=== PATIENT | female | born 1990 | race Caucasian/White ===

== ENCOUNTER → 2025-01-16 07:52 | Outpatient (REF) | payer OTHER, SELFPAY | LOC: PNTC 07:52 | PROVIDERS: ATTENDING PHYSICIAN Student in an Organized Health Care Education/Training Program | DX: Z36.0 Encounter for antenatal screening for chromosomal anomalies (principal); Z36.82 Encounter for antenatal screening for nuchal translucency | CPT/HCPCS: 76801; 76813 ==

== ENCOUNTER 2025-02-05 08:50 | Emergency (ER) | payer OTHER, SELFPAY ==
[2025-02-05 08:56] VITALS: BP 140/98
[2025-02-05 10:08] LABS: % Immature Granulocytes 0.3 % (0-0.5); % Lymphocytes 21.9 % (20.5-51.1); % Monocytes 4.9 % (1.7-9.3); % Neutrophils 72.9 % (42.2-75.2); Absolute Lymphocytes 1.7 10^3/uL (1.2-3.4); Absolute Monocytes 0.4 10^3/uL (0.1-0.6); Absolute Neutrophils 5.8 10^3/uL (1.4-6.5); Hematocrit 42.7 % (37.0-47.0); Hemoglobin 14.8 g/dL (12.0-16.0); Mean Corp Hgb Conc. 34.7 g/dL (33.0-37.0); Mean Corpuscular Hgb 28.5 pg (27.0-31.0); Mean Corpuscular Volume 82.1 fL (81.0-99.0); Nucleated Red Blood Cells % 0 %; Platelet Count 168 10^3/uL (130-400); Red Cell Dist. Width 12.2 % (11.5-14.5)
[2025-02-05 10:19] LABS: ALT (SGPT) 24 U/L (0-35); AST (SGOT) 20 U/L (14-36); Albumin 4.2 g/dl (3.5-5.0); Alkaline Phosphatase 104 U/L (38-126); Blood Urea Nitrogen 6 mg/dl (7-17); Calcium 9.4 mg/dl (8.4-10.2); Carbon Dioxide 22 mmol/L (22-30); Chloride 106 mmol/L (98-107); Glucose 146 mg/dl (70-99); Potassium 4.1 mmol/L (3.5-5.1); Sodium 138 mmol/L (135-145); Total Bilirubin 0.6 mg/dl (0.2-1.3); Total Protein 6.7 g/dl (6.3-8.2); eGFR > 60.00
[2025-02-05 10:35] VITALS: BP 128/86; BMI 27.5
--- NOTE | 2025-02-05 10:35 | ED.GENMED ---
History of Present Illness
General
Chief Complaint: Problems
Time Seen by Provider: 02/05/25 10:05
History of Present Illness
History of Present Illness:
34-year-old female at 15 weeks gestation presenting for vaginal bleeding. Patient reports she woke up with lower abdominal cramping and then had very heavy vaginal bleeding. Does note that she has been passing some clots. Reports that she
has been following with [facility] at [place], had normal ultrasounds previously. Patient sent in by [facility] for concern of miscarriage. Denies additional acute medical complaints
Past History
Past History
ED Past Medical History: None
ED Past Surgical History: None
Phy Exam
Physical Exam
Physical Exam:
General: Well-appearing, no clinical signs of dehydration, nontoxic and in no acute distress
HEENT: protecting airway
Neck: appears supple
CV: Normal heart rate
Resp: No accessory muscle use, no increased work of breathing
Abd: Soft and non-distended, no tenderness to palpation
Extremities: No deformities, no swelling
Neuro: alert, no focal neurologic deficit
: deferred
Rectal: deferred
Psych: Normal affect
Skin: Intact
Course
Orders/Labs/Results
Orders:
Orders
02/05/25 09:49
US 2nd/3rd Trimester Urgent
Comment:
Reason For Exam: 15 wks preg started vag blding
Date of Last Menstrual Period: 10/20/24
EDC?: 08/27/25
02/05/25 09:50
Type+Screen Urgent
Beta HCG Quantitative Urgent
Comment: ADD ON
Complete Blood Count/With Diff Urgent
Comprehensive Metabolic Panel Urgent
02/05/25 10:24
Add On- LAB Urgent
Tests Added?: serum
02/05/25 10:33
ABO2 Urgent
BBK Wristband Number:
Associate notified that ABO2 has been ordered: [id number]
Date: 02/05/25
Time: 10:06
[place] Operator ID: [id number]
Abnormal Lab Results
02/05/25
09:50
BUN 6 L mg/dl
(7-17)
Creatinine 0.5 L mg/dL
(0.6-1.0)
Glucose 146 H mg/dl
(70-99)
02/05/25 09:50
02/05/25 09:50
Vital Signs
Initial and Last Documented VS:
Initial Vital Signs
Temp Pulse Resp BP Pulse Ox
98.3 F 108 16 140/98 97
02/05/25 08:56 02/05/25 08:56 02/05/25 08:56 02/05/25 08:56 02/05/25 08:56
Last Documented Vital Signs
Temp Pulse Resp BP Pulse Ox
98.3 F 106 16 128/68 100
02/05/25 08:56 02/05/25 12:50 02/05/25 12:50 02/05/25 12:50 02/05/25 12:50
Information
Weeks gestation: Weeks: (15)
Location: N/A
MDM/Problems Addressed
MDM/Problems Addressed:
34-year-old female, , at 15 weeks gestation presenting for abdominal cramping and vaginal bleeding. Vital signs on arrival are normal.
On exam patient is resting comfortably, no acute distress. Abdominal exam is benign without any focal reproducible tenderness. Concern for miscarriage given reported level of bleeding. Plan for laboratory analysis and ultrasound imaging.
11:30 -ultrasound without any evidence of intrauterine , with concern for spontaneous miscarriage. OB updated, will come down to evaluate. Patient updated on her results as well
12:30 -OB attending to bedside. Did extract a small clot. Otherwise feel stable for discharge. She will call her for follow-up appointment and repeat beta testing. Patient hemodynamically stable. Return precautions discussed and patient
verbalized understanding.
*Critical Care Note
Total Time (30-74mins, 75-104mins- exclusive of procedures): Not Applicable
ED Attending Note
-
Portions of this chart may have been created with voice recognition software.� Occasional wrong word or��sound alike� substitutions may have occurred due to the inherent limitations of voice recognition software.
Discharge Plan
Departure
Patient Disposition: Home (Routine Discharge)
Date of Disposition: 02/05/25
Time of Disposition: 12:38
Patient with high blood pressure during this ER visit?: No
Condition: Good
Discharge Problem:
Spontaneous miscarriage
Instructions: Miscarriage (DC)
Prescriptions:
No Action
prednisone 20 MG tablet
40 mg PO DAILY Qty: 8 0RF
Referrals:
Evgeny Giles CRNP [Family Provider] -
Activity Restrictions/Additional Instructions:
You were seen in the emergency department for abdominal pain and bleeding in
You were found to unfortunately have a spontaneous miscarriage. Your OB doctor will call you for a follow-up appointment and to schedule repeat beta quantitative testing.
Return to the emergency department for any worsening of your symptoms including increased bleeding or pain, or any development of chest pain, difficulty breathing, abdominal pain with persistent vomiting and inability to tolerate food or liquid by
mouth (concern for dehydration), weakness, headache or confusion, fever greater than 100.4, or any additional symptoms that are concerning to you.
Thank you for choosing [facility].
Interventions
Interventions:
*Risk Screen - Suicide Last Done: 02/05/25 12:50
*General Assessment Last Done: 02/05/25 12:50
*Neglect/Abuse Screening Last Done: 02/05/25 12:50
*ED- Fall Risk Assessment Last Done: 02/05/25 12:50
*ED COVID-19 Vaccine History Last Done: 02/05/25 12:50
*Nursing Disposition Last Done: 02/05/25 12:50
ED-Female Genitourinary Assessment Last Done: 02/05/25 10:35
Discharge Date and Time
Discharge Date/Time: 02/05/25 12:50
Print Language: BENINESE
--- NOTE | 2025-02-05 12:10 | EDRN ---
Dr. Joyce in room w/pt
[2025-02-05 12:50] VITALS: BP 128/68
== END 2025-02-05 12:50 | disposition home or self-care (01) ==
LOC: EMR 08:50
PROVIDERS: EMERGENCY PHYSICIAN Student in an Organized Health Care Education/Training Program; FAMILY PHYSICIAN Nurse Practitioner Adult Health
DX: O03.9 Complete or unspecified spontaneous abortion without complication (principal)
CPT/HCPCS: 99284; 76805; 80053; 84702; 85025; 86850; 86900; 86901

== ENCOUNTER → 2025-05-09 15:13 | Outpatient (REF) | payer OTHER, SELFPAY | LOC: HWRAD 15:13 | PROVIDERS: ATTENDING PHYSICIAN Nurse Practitioner Family; FAMILY PHYSICIAN Nurse Practitioner Adult Health | DX: E05.00 Thyrotoxicosis with diffuse goiter without thyrotoxic crisis or storm (principal) | CPT/HCPCS: 76536 ==